=== PATIENT | male | born 2000 | race Caucasian/White ===

== ENCOUNTER 2024-10-26 15:28 | Emergency (ER) | payer OTHER ==
[~2024-10-26] VITALS: Ht 170.2 cm; Wt 63.5 kg
[2024-10-26 15:36] VITALS: BP 146/97; TEMP 98.3; O2SAT 99
[2024-10-26] MEDS ORDERED: ACETAMINOPHEN 325 MG TABLET ONE (15:59)
[2024-10-26] MEDS ORDERED: ONDANSETRON 4 MG TAB.RAPDIS ONE (15:59)
[2024-10-26] MEDS: ACETAMINOPHEN 325 MG TABLET PO ONE (16:00)
[2024-10-26] MEDS: ONDANSETRON HCL 4 MG/5 ML SOLUTION PO ONE (16:00)
[2024-10-26 16:16] LABS: BASOPHILS # (AUTO) 0.1 K/uL (0.0-0.2); BASOPHILS % (AUTO) 0.9 % (0.0-2.0); EOSINOPHILS % (AUTO) 0.6 % (0.0-6.0); HEMATOCRIT 45 % (39-51); HEMOGLOBIN 15.2 g/dL (13.5-17.5); LYMPHOCYTES # (AUTO) 1.8 K/uL (0.8-4.8); LYMPHOCYTES % (AUTO) 30.3 % (20.0-44.0); MEAN CORPUSCULAR HEMOGLOBIN 31 PG (26.0-33.0); MEAN CORPUSCULAR HGB CONC 34 g/dl (31.0-36.0); MEAN CORPUSCULAR VOLUME 90 fL (80-96); MONOCYTES # (AUTO) 0.5 K/uL (0.1-1.30); MONOCYTES % (AUTO) 7.5 % (2.0-12.0); NEUTROPHILS # (AUTO) 3.7 K/uL (1.8-8.9); NEUTROPHILS % (AUTO) 60.7 % (43.0-81.0); PLATELET COUNT (AUTO) 301 K/uL (150-450); RED BLOOD CELL COUNT(AUTO) 4.95 MIL/uL (4.5-6.0)
[2024-10-26] MEDS ORDERED: IBUP-1953 PO (17:34)
[2024-10-26] MEDS ORDERED: ONDA4TAB5 PO (17:34)
[2024-10-26] MEDS ORDERED: ACET325T53 PO (17:34)
[2024-10-26] MEDS ORDERED: KETOROLAC TROMETHAMINE 15 MG/ML VIAL ONE (17:45)
[2024-10-26] MEDS: KETOROLAC TROMETHAMINE 15 MG/ML VIAL IM ONE (17:47)
== END 2024-10-26 18:00 | disposition home or self-care (01) ==
LOC: ER 15:35
DX: Z04.2 Encounter for examination and observation following work accident (principal); M54.2 Cervicalgia; R11.0 Nausea; R51.9 Headache, unspecified; F12.90 Cannabis use, unspecified, uncomplicated; Z87.891 Personal history of nicotine dependence; V43.52XA Car driver injured in collision with other type car in traffic accident, initial encounter; Y93.89 Activity, other specified; Y92.488 Other paved roadways as the place of occurrence of the external cause; Y99.8 Other external cause status
CPT/HCPCS: 99285; 96372; 70450; 85025; 36415; 80320; Q0162; J1885; G0480